=== PATIENT | male | born 1960 | race Caucasian/White ===

== ENCOUNTER 2025-02-09 06:15 | Inpatient (IN) | payer BC, OTHER ==
[~2025-02-09] VITALS: Ht 165.1 cm; Wt 64.5 kg
--- NOTE | 2025-02-09 06:48 | Physician Documentation ---
History of Present Illness Chief Complaint: Abdominal Pain Stated Complaint: ABDOMINAL PAIN Time Seen by MD: 06:40 HPI This is a pleasant 64-year-old gentleman who presents for evaluation of right- sided abdominal pain that has been began on November 26 after he was cutting down a has a tree. He noticed a bubble on his abdomen and was concerned he might have a hernia. He states that the pain was intermittent, typically accompanied by nausea without vomiting, and he is able to eat when the pain subsides. He has not been able to elicit any particular palliating factors. Did not attempt to treat it. He states that today, 3:00 a.m. in the morning, he woke up with pain, nausea, vomiting, chills and sweats. The pain is moderate to severe in its intensity, nonradiating, not migratory, not ripping or tearing. Did not attempt to treat it. Finally decided to come in and get checked out. Denies any chest pain or difficulty breathing. He denies use of tobacco, alcohol or illicit substances Medication Reconciliation Allergies: Coded Allergies: pollen extracts (Verified Allergy, Unknown, 04/15/21) Review of Systems ROS 10 point review of systems was performed and unless noted above in HPI is negative for acute process/complaint. Physical Exam Vital Signs: Temperature: 97.8, Source: Temporal, Heart Rate: 75, Respiratory Rate: 15, BP: 173/122, Pulse Oximetry: 97, Weight: 64.500 Physical Exam GENERAL: Awake, alert, oriented, GCS 15, no apparent distress, non-toxic appearing, answers questions, follows commands appropriately. Examined in room 13. HEENT: Atraumatic, normocephalic, pupils equal, extraocular muscles intact, sclerae anicteric, mucus membranes moist, oropharynx is clear, no stridor. NECK: supple, full active range of motion, trachea midline, no thyromegaly, no lymphadenopathy, no JVD. CARDIOVASCULAR: regular rate/rhythm, no murmurs/gallops/rubs, Pulses are 2+ in all extremities and symmetric. Capillary refill less than 2 seconds. PULMONARY: Nonlabored, good air movement ,no respiratory distress, speaking in full sentences, clear to auscultation bilaterally, no wheezing, no ronchi, no rales, no accessory muscle use. GASTROINTESTINAL: Soft, right-sided mid abdominal tenderness to palpation without guarding or rebound reproducing chief complaint, non-distended, normal active bowel sounds, no organomegaly, no pulsatile masses, no CVA tenderness. NEUROLOGIC: Lucid with normal mental status. Normal facial symmetry. Moves all extremities symmetrically and with purpose. No truncal ataxia. Speech is fluid without evidence of dysarthria or aphasia, no focal deficits appreciated. MUSCULOSKELETAL: There is full range of motion of all extremities. There is no joint pain or joint swelling or joint erythema. There is no muscle pain or tenderness or swelling. EXTREMITIES: warm, well-perfused, no cyanosis, no clubbing, no edema, no acute deformities. Skin: warm, dry, no rashes or lesions, no jaundice, no petechiae orpurpura. No ecchymosis. PSYCHIATRIC: Normal affect, normal insight, normal concentration. Focused exam: [] Progress Results/Orders Results/Orders Orders - MAYANK TABOR DO Urinalysis, Cult If Indicated (02/09/25 06:29) Cbc/Diff (02/09/25 06:29) BMP (02/09/25 06:29) Lipase (02/09/25 06:29) CMP (02/09/25 06:29) Vital Signs 02/09/25 06:27 Temp 97.8 Pulse 75 Resp 15 B/P (MAP) 173/122 Pulse Ox 97 Medical Decision Making Findings Facility Status: ED Holds, [facility] process The plan was discussed with the patient, who demonstrates clear understanding of the plan and is in agreement with the plan unless otherwise noted in the chart. All questions have been answered, all concerns were addressed unless otherwise documented. I was available throughout their ED stay for frequent reassessment and questions. Differential Diagnoses (considered and possible or likely): [Differential diagnosis considered includes acute appendicitis, acute cholecystitis, pancre atitis, gastritis, PUD, diverticulitis, mesenteric ischemia, abdominal aortic aneurysm, bowel obstruction, enteritis, colitis, fecal impaction, volvulus, IBS, inflammatory bowel disease, specific food intolerance, peritonitis, perforated viscous, malignancy, UTI, abscess, and abdominal pain NOS. History, physical exam, and workup exclude many of the more serious causes listed above. ] ??Differential Diagnoses (considered and unlikely, not requiring evaluation currently): [Aortic/great vessels dissection was considered but it is unlikely based on absence of ripping, tearing, migratory chest pain, absence of syncope or focal neurologic deficits, physical examination indicating equal and symmetric pulses.] MDM Data Please see HPI for the following: Independent Historians and external Records Review. Historian: [Patient] Independent Historians: ?[None] Medication Management: [Reviewed medication list] Social History and determinants: [Reviewed] Please see the body of the note for the following: Any independent interpretatio ns of ECG, imaging studies. All vitals signs/haemodynamics, ordered tests were independently reviewed and interpreted by myself. Nursing triage complaint and vitals reviewed, additional nursing notes were reviewed as available and I agree unless otherwise noted or documented in contradiction in the chart Vital Signs: Independently reviewed Labs: Independently interpreted Imaging: Independently interpreted Old Medical Records: Independently reviewed, see HPI for relevant summary and information Pulse Oximetry: [97%] interpreted as [normal on room air] by me [Healthcare Recruiter: [Regular Rate, Regular rhythm, no ectopy, NSR] reviewed and interpreted by me] Additionally notably showing: [Hemodynamically the patient is stable. Laboratory workup notable for hematuria, mild UTI. Imaging notable for 10 mm stone at right UVJ and moderate hydronephrosis.] Tests considered but not ordered include: [Not applicable] Social Determinants of Health Impact: Patient was evaluated in [facility], or [facility] [place] to healthcare due to below par ratio of patient to medical providers. [] Comorbid Conditions Impacting Present Evaluation and Care/Treatment: [None] Management Discussions with other Healthcare Providers: [Dr. Virgen, urologist on-call Hospitalist regarding admission] Treatment and Disposition Medication Management (Given or considered): [Who extensive pain management]. See EMR for details Consideration for Hospitalization/Escalation/Deescalation of Care: Admission for observation has been considered, and appears to be necessary for further management of his pain, hydronephrosis, acute kidney injury secondary to 10 mm stone. ?ED Course:?[Required extensive pain medication to gain control his pain.] ?Shared decision making:?[] Code status:?FULL Please see the full Electronic Medical Record for full details of nursing documentation, medications list, other records of complete past medical history and conditions, vital signs, laboratory studies, and any radiologic study interpretations by radiologists. Portions of this note were completed using Enbridge dictation software and as a result there may exist minor errors in spelling. I have reviewed elements of past family and social history and agree as included in note. Departure Disposition: ADMITTED INPATIENT Admitted to Inpatient Unit: to hospitalist Impression: Primary Impression: Kidney stone on right side Additional Impressions: Hydronephrosis of right kidney Acute kidney injury Intractable pain Condition: Stable Referrals: NO PRIMARY CARE PROVIDER (PCP) Signature Scribe Signature: No scribe Attestation: This note accurately reflects clinical decisions, work performed by myself, DO LEANDER Hendricks NICHOLAS M DO Feb 09, 2025 06:48
--- NOTE | 2025-02-09 07:04 | ELECTROCARDIOGRAPH REPORT ---
[facility] Test Date: 2025-02-09 Test Time: 07:02:57 Pat Name: SHAWNA AVILES Department: [facility]ER Patient ID: [facility]-[id number] Room: Gender: M Comptroller: : 1960 Requested By: MAYNAK TABOR Order Number: [id number] Reading MD: Measurements Intervals Elliott Rate: 77 P: 53 IL: 177 QRS: 60 QRSD: 101 T: 33 QT: 377 QTc: 427 Interpretive Statements Sinus rhythm Consider anterior infarct Please click the below link to view image of tracing.
[2025-02-09] MEDS: morphine 4 MG/ML inj SYRINge IV ONE (07:07)
[2025-02-09] MEDS: ondansetron/PF 4mg/2ml inj IV ONE (07:07)
[2025-02-09] MEDS: ketorolac trometh 30MG/ML vial 30 MG/ML VIAL IV ONE (08:25)
[2025-02-09 08:26] LABS: MEAN PLATELET VOLUME 7.4 FL (7.4-10.4); RED CELL DISTRIBUTION WIDTH 13.4 % (11.5-14.5)
--- NOTE | 2025-02-09 08:29 | RADIOLOGY REPORT ---
INDICATION: ruq pain TECHNIQUE: Multiple real-time sonographic images were obtained of the right upper quadrant. COMPARISON: None FINDINGS: The liver demonstrates homogeneous echotexture without focal mass lesions. The liver measu res 18 cm. There is no intrahepatic or extrahepatic ductal dilatation. The common duct measures 0.4 cm. The gallbladder is without evidence of stone or sludge. The gallbladder wall measures 0.3 cm and is w ithin normal limits. The right kidney measures 11 cm. The right kidney is normal in contour, size, and shape. The echogeni city is normal. Mild right hydronephrosis. The pancreas is not well visualized due to overlying bowel gas. IMPRESSION: Mild right hydronephrosis.
[2025-02-09 08:42] LABS: CREATININE 1.17 MG/DL (0.60-1.10); TOTAL CARBON DIOXIDE 27.5 MMOL/L (24-32); eCRCL 56 ML/MIN; eGFR 63 ML/MIN
[2025-02-09] MEDS ORDERED: iohexol 300mg/ml 100ml inj. ONE (08:46)
[2025-02-09] MEDS ORDERED: morphine 4 MG/ML inj SYRINge IV ONE (09:10)
--- NOTE | 2025-02-09 09:26 | RADIOLOGY REPORT ---
EXAM: CT CT ABDOMEN PELVIS W/ IV CONTRAST HISTORY: RLQ pain COMPARISON: None TECHNIQUE: Helical CT images of the abdomen and pelvis were performed with 100 mL omnipaque 300 IV c ontrast. Sagittal and coronal reformatted images were obtained. This CT exam was performed using 1 or more of the following dose reduction techniques: Automated exposure control, adjustment of the mA an d/or kv according to patient size, or the use of iterative reconstruction techniques. Radiation Dose Information: CT Dose: CTDI volume is 14.33 mGy. Dose-length product is 705.54 mGy*cm FINDINGS: CT abdomen: There is mild scarring or atelectasis in the dependent portions of the lung bases. The h eart is upper limits of normal in size. The liver is likely diffusely fatty density. There is a righ t renal superior pole simple cortical cysts. There is moderate right hydronephrosis secondary to a u reteropelvic junction 10 mm calculus (image 39, series 2). The spleen, gallbladder, pancreas, left ki dney, and bilateral adrenal glands are unremarkable. No abdominal aortic aneurysm or dissection. CT pelvis: No abnormal bowel dilatation, free air, or free fluid. The appendix and urinary bladder ar e unremarkable. The prostate is mildly enlarged. There are small bilateral fatty inguinal indirect he rnias. There is mild osteoarthritis of the hips. There is moderate lumbar degenerative disc disease, greatest at L4-L5. There is mild lumbar dextroscoliosis. IMPRESSION: 1. Moderate right hydronephrosis secondary to a 10 mm ureterovesical junction calculus. 2. Mild Prostatic enlargement. 3. Moderate lumbar degenerative disc disease and mild osteoarthritis of the hips. 4. No evidence of bowel obstruction, acute appendicitis, or other acute process in the abdomen or pel vis.
[2025-02-09 10:11] LABS: LEUKOCYTE ESTERASE ,URINE NEGATIVE (Neg); NITRITES, URINE NEGATIVE (Neg); OCCULT BLOOD,URINE LARGE (Neg)
[2025-02-09 10:12] LABS: UA COLLECTION TYPE NON-SPECIFIED
[2025-02-09 10:18] LABS: SPERM FEW /HPF (NEGATIVE)
[2025-02-09 10:26] LABS: SQUAMOUS EPITHELIAL CELL,UR NONE SEEN /LPF (FEW)
[2025-02-09] MEDS ORDERED: HYDROcodone/acetaminophen 5mg/325mg tablet PO PRN (12:05)
[2025-02-09] MEDS ORDERED: ondansetron/PF 4mg/2ml inj IV PRN ×2 (12:05→15:35)
[2025-02-09] MEDS ORDERED: magnesium hydroxide 30ml (MOM) UD suspension PO PRN (12:05)
[2025-02-09] MEDS ORDERED: potassium Cl 20 mEq SR tablet PO PRN ×2 (12:05)
[2025-02-09] MEDS ORDERED: HYDROcodone/acetaminophen 10/325mg tab PO PRN (12:05)
[2025-02-09] MEDS ORDERED: mag hydrox/Alum hydrox/simeth 30ml oral suspension PO PRN (12:05)
[2025-02-09] MEDS ORDERED: ondansetron 4mg rapidly disintigrating tab PO PRN (12:05)
[2025-02-09] MEDS ORDERED: magnesium sulf-water 2g/50mL 50 ML IV PRN (12:05)
[2025-02-09] MEDS ORDERED: potassium Cl 40MEQ/1/2NS 520ml 520 ML IV PRN (12:05)
[2025-02-09] MEDS ORDERED: magnesium sulf-water 4G/100mL 100 ML IV PRN (12:05)
[2025-02-09] MEDS ORDERED: metoclopramide 5 mg/ml inj IV PRN (12:05)
--- NOTE | 2025-02-09 13:15 | HISTORY AND PHYSICAL ---
History & Physical Providers to ~ History of Present Illness Reason for Admit\Complaint: Hydronephrosis, nephrolithiasis, CURTIS History of Present Illness Wing Hirsch is a 64-year-old male with no reported significant past medical history who presented to the ED with chief complaint of progressively worsening right-sided abdominal pain x 2 months and episodes of nausea and vomiting yesterday. Patient denies prior [place]/CAD, CVA, cardiac arrhythmia, CKD, DVT/PE, or GIB. Patient denies chest pain, palpitations, shortness of breath, abdominal pain, diarrhea, fever, chills, dysuria. Initial diagnostic findings were notable for CT abdomen/pelvis revealing moderate right hydronephrosis and 10 mm ureterovesical junction calculus without evidence of acute abdomen. Patient is to be admitted for further workups and treatment. Allergies: Coded Allergies: pollen extracts (Verified Allergy, Unknown, 04/15/21) Past Medical History Past Medical History Rotator cuff Past Surgical History Surgical History Comment Orthopedic surgeries Past Social History Social History Comment Alcohol: Denies Tobacco: Denies, never Illicit drug use: Denies Living situation: Lives at home with family ROS ROS Other than positives in HPI, all 14 review of systems are negative Exam Vitals: Vital Signs Date Time Temp Pulse Resp B/P (MAP) Pulse Ox O2 Delivery O2 Flow Rate FiO2 02/09/25 11:30 72 18 111/77 (88) 96 0 02/09/25 08:31 97.8 General: A&Ox 3, NAD HEENT: Normocephalic, PERRLA Neck: Supple, trachea midline, no JVD Chest: Clear to auscultation bilaterally Cardiovascular: RRR, S1&S2 Abdomen: Soft and nontender Extremities: No cyanosis/clubbing/or edema Central Nervous System: CN II-XII intact, no focal deficits Musculoskeletal: No paraspinal muscle tenderness, no muscle spasm Skin: Warm and intact Diagnostic Data Last Recorded Lab Results: 02/09/25 0811 02/09/25 0811 Additional Plan Assessment Nephrolithiasis Hydronephrosis, moderate Postrenal CURTIS 2/2 nephrolithiasis HTN -CT abdomen/pelvis revealing moderate right hydronephrosis and 10 mm ureterovesical junction calculus without evidence of acute abdomen -Cr 1.17, BUN/Cr 22, GFR 63 Plan -start supportive care, tamsulosin, amlodipine, prn hydralazine -consulted urologist Dr. Virgen, OR tomorrow DVT/VTE prophylaxis: heparin Code status: Full code I spent a total of 35 minutes discussing Advanced Care Planning measures with the patient. Advance care planning: Discussed with patient the importance of advance care planning in case of emergent situation. We discussed various resuscitative measures/ ACP with the patient at the time of admission. Patient voiced understanding and patient has decided on a full code status. Date of Service: Feb 09, 2025 Billing Provider: ADELINE FRAGA Common Visit Codes: 88561-XWTZXHD INP/OBS CARE (HIGH) Secondary Visit Codes: 21282-CZXILSQS CARE PLAN 30 MINUTES ADELINE FRAGA Feb 09, 2025 13:15
[2025-02-09] MEDS: normal saline 1000ml 1,000 ML IV SCH (13:32)
[2025-02-09 14:45] VITALS: BP 124/77; PULSE 87; RESP 16; TEMP 98.2; O2SAT 96
[2025-02-09 15:33] VITALS: BP_SYST 111; BP_SYST 124; BP_DIAS 65; BP_DIAS 77; PULSE 74; PULSE 87; RESP 16; TEMP 97.6; TEMP 98.2; O2SAT 96
[2025-02-09] MEDS ORDERED: NO HOME MEDS (15:33)
[2025-02-09] MEDS ORDERED: fentaNYL/PF 50MCG/1 ML 2ML syringe IV PRN ×2 (15:35)
[2025-02-09] MEDS ORDERED: labetalol 20mg/4ml (5mg/ml) syringe IV PRN (15:35)
[2025-02-09] MEDS: ringers solution, lacted 1,000 ML IV SCH (15:35)
[2025-02-09] MEDS ORDERED: morphine 4 MG/ML inj SYRINge IV PRN (15:35)
[2025-02-09] MEDS ORDERED: hydrALAZINE 20mg/ml inj. IV PRN ×2 (15:35→18:50)
--- NOTE | 2025-02-09 16:03 | RADIOLOGY REPORT ---
CHEST RADIOGRAPH Indication: pre-op Technique: Single frontal view of the chest was obtained Comparison: None FINDINGS: The cardiac silhouette is unremarkable. The lungs demonstrate no pulmonary airspace consolidation. Th e pulmonary vasculature is unremarkable. There is no pleural effusion.. There is no pneumothorax. Ao rtic atherosclerotic disease IMPRESSION: No pulmonary airspace consolidation.
[2025-02-09 16:45] LABS: INR 1.0 INR
[2025-02-09 17:41] VITALS: RESP 16; O2SAT 96
[2025-02-09 18:00] VITALS: BP 128/86; PULSE 89; RESP 16; TEMP 98.2; O2SAT 96
[2025-02-09] MEDS: K and/or MAG REPLACEMENT MC SCH (19:25)
[2025-02-09] MEDS: heparin, porcine 5000 units/ml vial SQ SCH (19:29)
[2025-02-09] MEDS: docusate sod 100mg capsule PO SCH (19:29)
--- NOTE | 2025-02-09 19:47 | CONSULTATION ---
DATE OF CONSULTATION: 02/09/2025 DICTATING PHYSICIAN: Braxton Virgen MD HISTORY OF PRESENT ILLNESS: A 64-year-old male with intermittent right flank pain dating back to October. He had no prior history of stones. He was having intermittent severe pain and he thought he pulled a muscle initially. At 3 o'clock in the morning, he woke up with a more severe pain with associated nausea and vomiting. No fevers. He was consulted and was found to be passing a stone. PAST SURGICAL HISTORY: None. PAST MEDICAL HISTORY: None. ALLERGIES: None. MEDICATIONS: None. SOCIAL HISTORY: Denies smoking or alcohol use. 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 PHYSICAL EXAMINATION: VITAL SIGNS: Blood pressure is 173/122, respirations 15, heart rate 75, temperature 97.8. GENERAL: He is in moderate distress complaining of right-sided flank pain. LABORATORY DATA: White count is 9000, hematocrit is 45%, BUN and creatinine are 26 and 1.2. Urinalysis revealing for 50 to 100 red cells and 0 to 4 white cells per high powered field. IMAGING: CT scan is reviewed in detail and reveals an 8 mm stone at the right ureteropelvic junction with associated mild hydronephrosis and perinephric stranding. ASSESSMENT: Pain secondary to sizable right proximal ureteral calculus. This is unlikely to pass without assistance. The patient is not tolerating outpatient management. PLAN: N.p.o. Operative intervention can consist of right ureteroscopic stone extraction of laser and stent placement. Informed consent obtained. Risks, alternatives, benefits, and complications were discussed. The patient understands and wished to proceed. Braxton Virgen MD TID: [id number] RECEIPT: [id number] /MENDEL
[2025-02-09 22:00] VITALS: BP 102/62; PULSE 94; RESP 14; TEMP 98.2; O2SAT 96
[2025-02-10] VITALS (19 sets, daily range): BP systolic 104–170; BP diastolic 63–99; PULSE 57–106; RESP 10–21; TEMP 97.6–98.7; O2SAT 95–100
[2025-02-10 05:58] LABS: MEAN PLATELET VOLUME 7.8 FL (7.4-10.4); RED CELL DISTRIBUTION WIDTH 13.4 % (11.5-14.5)
[2025-02-10 06:02] LABS: CREATININE 0.89 MG/DL (0.60-1.10); TOTAL CARBON DIOXIDE 27.0 MMOL/L (24-32); eCRCL 74 ML/MIN; eGFR 86 ML/MIN
[2025-02-10] MEDS ORDERED: ondansetron/PF 4mg/2ml inj IV PRN (09:25)
[2025-02-10] MEDS ORDERED: morphine 4 MG/ML inj SYRINge IV PRN (09:25)
[2025-02-10] MEDS ORDERED: fentaNYL/PF 50MCG/1 ML 2ML syringe IV PRN ×2 (09:25)
[2025-02-10] MEDS ORDERED: labetalol 20mg/4ml (5mg/ml) syringe IV PRN (09:25)
[2025-02-10] MEDS ORDERED: hydrALAZINE 20mg/ml inj. IV PRN (09:25)
[2025-02-10] MEDS: ringers solution, lacted 1,000 ML IV SCH (09:25)
[2025-02-10] MEDS: ringers solution, lacted 1,000 ML IV ONE (09:25)
[2025-02-10] MEDS ORDERED: dexamethasone sod phosphate 4mg/ml inj. ONE (13:54)
[2025-02-10] MEDS ORDERED: fentaNYL/PF 50MCG/1 ML 2ML syringe ONE (13:54)
[2025-02-10] MEDS ORDERED: midazolam 1 mg/ML 2ml injection ONE (13:54)
[2025-02-10] MEDS ORDERED: propofol inj 20 ML IV ONE (13:54)
[2025-02-10] MEDS ORDERED: LIDOcaine 2% (20mg/ml) 5ml vial ONE (13:54)
[2025-02-10] MEDS ORDERED: ondansetron/PF 4mg/2ml inj ONE (13:54)
--- NOTE | 2025-02-10 15:08 | POSTOPERATIVE RECORDS ---
Postoperative Records Providers to CC ~ Date of Procedure: Feb 10, 2025 Problems: (1) Kidney stone on right side (2) Intractable pain Post-Operative Diagnosis SAME as PRE-Op Procedure Performed right retrograde renoscopic stone extraction with laser and stent placement Surgeon: Promise Boo none Anesthesiologist: Jorge Berkowitz Type of Anesthesia: General Findings: dictated Complications none Prosthetics\Implants used: stent Estimated Blood Loss: none Specimen Removed: none Description of Procedure: dictated PANFILO AMAYA MD Feb 10, 2025 15:08
--- NOTE | 2025-02-10 15:30 | OPERATIVE REPORT ---
DATE OF SURGERY: 02/10/2025 DICTATING PHYSICIAN: Braxton Virgen MD PREOPERATIVE DIAGNOSIS: Right UPJ stone. POSTOPERATIVE DIAGNOSIS: Right renal stone. OPERATIONS PERFORMED: * Right retrograde renoscopic stone extraction with laser. * Right ureteral stent placement. SURGEON: Braxton Virgen MD ANESTHESIOLOGIST: Dr. Berkowitz. ANESTHESIA: General INDICATIONS: A 64-year-old male who presented with a 9 mm right proximal ureteral stone. He did not tolerate outpatient management. He is recommended to undergo urgent endoscopic management. Preoperative films revealed the stone at the right UPJ. DESCRIPTION OF PROCEDURE: After obtaining informed consent, the patient was taken to the operating room, where general anesthesia was induced. He was then placed in the dorsal lithotomy position. The genitals were prepped and draped in the usual fashion. The cystoscope was placed into the bladder and the right ureteral orifice was identified. A wire was pushed up into the kidney under fluoroscopic guidance, but it would appear that the stone was pushed back into the kidney at that time. A second wire was placed with the aid of a 10-Guinean dual-lumen catheter and eventually converted to a stiff Glidewire. Initially, the access sheath would not advance; therefore, ureteral dilation was performed from 10-Guinean up to 14-Guinean with rigid dilators. This allowed the ureteral access sheath to be advanced up to the proximal ureter safely and a 36 cm 11-Guinean/13-Guinean sheath was utilized. Flexible ureteroscopy was then performed through the sheath and the stone was visualized in the renal pelvis. Laser lithotripsy was performed, breaking the stone into numerous tiny fragments of about 1 mm each. There were no remaining large fragments. The popcorn technique was utilized. It was elected to leave a stent. The sheath was removed under direct vision and the ureter was well preserved. The safety wire was then backloaded over the cystoscope and used to pass a 6-Guinean x 26 cm double-J stent with nice curl in the kidney and bladder seen fluoroscopically and cystoscopically. The patient was awakened from general anesthesia having tolerated the procedure well after draining the bladder. COMPLICATIONS: None. ESTIMATED BLOOD LOSS: Minimal. Braxton Virgen MD TID: [id number] RECEIPT: [id number] HASMUKH/HORACIO
[2025-02-10] MEDS ORDERED: tamsulosin capsule PO (16:56)
[2025-02-10] MEDS ORDERED: NOR5T PO (16:56)
--- NOTE | 2025-02-10 16:59 | DISCHARGE SUMMARY ---
Discharge Summary Providers to CC ~ Discharge Summary Admission Diagnosis: hydronephrosis, nephrolithiasis, HTN urgency Hospital Course DATE OF ADMISSION: 02/09/25 DATE OF DISCHARGE: 02/10/25 Discharge Diagnosis\Comment: Hydronephrosis 2/2 nephrolithiasis, right Nephrolithiasis Hypertension Hypertensive urgency- POA BPH Lumbar degenerative disc disease Osteoarthritis CURTIS- unable to exclude Operations\Procedures: Right ureteral stent placement Consultants: Neurologist Braxton Alcala Complications: None Condition on DC: Stable New Medications: Amlodipine Besylate (Amlodipine Besylate) 5 Mg Tablet 5 MG PO DAILY for 30 Days, #30 TAB [tamsulosin capsule] () 0.4 MG CAP 0.4 MG PO HS for 30 Days, #30 Continued Medications: Home Med List (No Home Medications) Each Discharge Summary: History of Present Illness Wing Hirsch is a 64-year-old male with no reported significant past medical history who presented to the ED with chief complaint of progressively worsening right-sided abdominal pain x 2 months and episodes of nausea and vomiting yesterday. Patient denies prior [place]/CAD, CVA, cardiac arrhythmia, CKD, DVT/PE, or GIB. Patient denies chest pain, palpitations, shortness of breath, abdominal pain, diarrhea, fever, chills, dysuria. Initial diagnostic findings were notable for CT abdomen/pelvis revealing moderate right hydronephrosis and 10 mm ureterovesical junction calculus without evidence of acute abdomen. Patient is to be admitted for further workups and treatment. Hospital Course Diagnostic findings were notable for CT abdomen/pelvis revealing moderate right hydronephrosis and 10 mm ureterovesical junction calculus without evidence of acute abdomen. Patient was started on supportive care, tamsulosin. Case was consulted with urologist Dr. Virgen and patient underwent right ureteral stent placement on 02/10/25 without complication. Patient did not experience further complications throughout the entire hospital stay. Patient made a great recovery earlier than expected and expressed willingness to be discharged. Patient was seen and examined on the day of discharge. On day of discharge, vss and labs unremarkable. All labs, diagnostic workups, discharge plan discussed with patient in details during visit before discharge. All questions and concerns answered to the best of my professional knowledge. Patient ambulates independently post-op. Patient is to be discharged to home to self and to follow-up with PCP and Dr. Virgen within 2 weeks. Physical Exam General: A&Ox 3, NAD HEENT: Normocephalic, PERRLA Neck: Supple, trachea midline, no JVD Chest: Clear to auscultation bilaterally Cardiovascular: RRR, S1&S2 GI: Soft and nontender Extremities: No cyanosis/clubbing/or edema FISH CUTTING MACHINE OPERATOR: CN II-XII intact, no focal deficits Musculoskeletal: No paraspinal muscle tenderness, no muscle spasm Skin: Warm and intact *Problems/Diagnosis: (1) Acute kidney injury Status: Acute (2) Kidney stone on right side Status: Acute Total Time Spent on D/C: > 30 Minutes Date of Service: Feb 10, 2025 Billing Provider: ADELINE FRAGA Common Visit Codes: 53502-SEU/OBS DISCH DAY >30min ADELINE FRAGA Feb 10, 2025 16:58
== END 2025-02-10 19:30 | disposition home or self-care (01) | DRG 661 ==
LOC: ER 06:15 → ED HOLD 12:10 → SUR 3N 14:25
PROVIDERS: ADMIT Nurse Practitioner Family; ATTEND Nurse Practitioner Family
PROC: BW211ZZ Computerized Tomography (CT Scan) of Abdomen and Pelvis using Low Osmolar Contrast (ICD-10-PCS; 2025-02-09)
PROC: 0TF38ZZ Fragmentation in Right Kidney Pelvis, Via Natural or Artificial Opening Endoscopic (ICD-10-PCS; 2025-02-10)
PROC: 0T768DZ Dilation of Right Ureter with Intraluminal Device, Via Natural or Artificial Opening Endoscopic (ICD-10-PCS; principal; 2025-02-10 13:57)
DX: N13.2 Hydronephrosis with renal and ureteral calculous obstruction (principal); N17.9 Acute kidney failure, unspecified; I10 Essential (primary) hypertension; I16.0 Hypertensive urgency; M51.369 Other intervertebral disc degeneration, lumbar region without mention of lumbar back pain or lower extremity pain; N40.1 Benign prostatic hyperplasia with lower urinary tract symptoms
CPT/HCPCS: 36415; 71045; 74177; 74420; 76000; 76700; 80053; 81001; 82948; 83690; 83735; 84145; 84484; 85025; 85610; 87081; 93005; 96374; 96375; 99285; A4618; C1758; C1769; C1894; C2617; G0378; J0690; J1100; J1644; J1885; J2003; J2250; J2270; J2405; J2704; J3010; J7030; J7120; Q9967